=== PATIENT | female | born 1945 | race Caucasian/White ===

== ENCOUNTER 2019-08-22 10:26 | Outpatient (CLI) | payer MEDICARE, OTHER, SELFPAY ==
--- NOTE | ~2019-08-22 | MM_ITS ---
EXAMINATION: MM screening erasto BI w bob HISTORY: Screening mammogram TECHNIQUE: Craniocaudal and mediolateral oblique 3-D tomosynthesis images were obtained and synthetic 2-D images were generated. CAD analysis was submitted and interpreted. COMPARISON: 08/08/2017 bilateral digital screening mammogram 08/23/2015 bilateral digital screening mammogram BREAST PARENCHYMAL COMPOSITION: The breasts are heterogeneously dense, which may obscure small masses . FINDINGS: There is bilateral biopsy markers; history of prior bilateral benign breast biopsies. There is no evidence of suspicious mass, calcification, or architectural distortion to suggest malignancy in either breast. There has been no suspicious interval change. IMPRESSION: 1. No mammographic evidence of malignancy. 2. Recommend routine screening mammography in one year. BI-RADS Category 2: Benign finding(s). Reviewed, dictated and finalized at location A.
== END 2019-08-22 10:27 | disposition home or self-care (01) ==
PROVIDERS: PCP Family Medicine; Visit Provider Family Medicine
DX: Z12.31 Encounter for screening mammogram for malignant neoplasm of breast (principal)
CPT/HCPCS: 77063; 77067

== ENCOUNTER 2020-06-30 14:39 | Outpatient (CLI) | payer MEDICARE, OTHER, SELFPAY | END 2020-06-30 14:40 | disposition home or self-care (01) | LOC: ANHCOVIDVC 14:39 | PROVIDERS: PCP Family Medicine | DX: Z23 Encounter for immunization (principal) | CPT/HCPCS: 0001A; 91300 ==

== ENCOUNTER 2020-07-21 14:37 | Outpatient (CLI) | payer MEDICARE, OTHER, SELFPAY | END 2020-07-21 14:38 | disposition home or self-care (01) | LOC: ANHCOVIDVC 14:37 | PROVIDERS: PCP Family Medicine | DX: Z23 Encounter for immunization (principal) | CPT/HCPCS: 0002A; 91300 ==

== ENCOUNTER 2022-06-05 12:35 | Emergency (ER) | payer MEDICARE, SELFPAY ==
--- NOTE | 2022-06-05 12:40 | ED.URI ---
HPI - URI/Sore Throat General Chief Complaint: Upper Respiratory Infection Stated Complaint: Sore Throat,Fatigue Time Seen by Provider: 06/05/22 12:40 Source: patient Mode of arrival: ambulatory Limitations: no limitations History of Present Illness HPI Narrative: 76-year-old female presents with complaint of nasal congestion, mild sore throat, cough, fever, body aches chills and fatigue starting yesterday. Denies chest pain or shortness of breath. No nausea vomiting diarrhea. Patient states that last week her and had few 4 days ago. Reports that she was doing a lot of hiking and shaking of hands. Thinks that she pick something up at services. Is taking Tylenol to treat her fever. Last dose was at 3:00 a.m.. Is aware that she has a fever on arrival and will take medication when she gets home. All systems reviewed and negative except as noted above. Related Data Home Medications Medication Instructions Recorded Confirmed simvastatin 20 mg tablet 20 mg PO DAILY 06/05/22 06/05/22 Allergies Allergy/AdvReac Type Severity Reaction Status Date / Time hydrocodone AdvReac Intermediate NAUSEA Verified 06/05/22 12:46 Review of Systems Review of Systems: CONSTITUTIONAL: Reports fever, chills, or sweats. EYES: Denies visual changes, redness, or discharge. ENT: reports rhinorrhea, congestion, sore throat, or otalgia. CARDIOVASCULAR: Denies chest pain, palpitations, or edema. RESPIRATORY: reports cough or dyspnea. GASTROINTESTINAL: Denies abdominal pain, nausea, vomiting, or diarrhea. GENITOURINARY: Denies dysuria or hematuria. SKIN: Denies rash or itching. MUSCULOSKELETAL: Denies back pain, joint pain, or myalgia. NEUROLOGIC: reports headache. Denies numbness, or weakness. PSYCHIATRIC: Denies anxiety or depression. All other systems reviewed are negative, except as documented in HPI. PMFSH Comments At time of signature, agree with nursing past medical, surgical, social and family history. There is no relevant family history pertinent to the presenting complaint. Exam Narrative: GENERAL: This is a well-nourished, well-developed patient, in no apparent distress. HEAD: normocephalic, atraumatic. EYES: PERRL. Sclera clear/white. Vision is grossly intact. EARS: External ears normal, auditory canals clear and without drainage, TMs normal without perforation. Hearing grossly intact. NOSE: External nose normal with no obvious nasal discharge, nares without redness, no rhinorrhea. THROAT: Mucous membranes moist, mild erythema NECK: Neck supple, non-tender without lymphadenopathy, masses or thyromegaly. CARDIOVASCULAR: Regular rate and rhythm without murmurs, gallops, or rubs. RESPIRATORY: Clear to auscultation. Breath sounds equal bilaterally. No wheezes, rales, or rhonchi. SKIN: warm, Dry, intact with no suspicious lesions or rash, good texture and turgor. NEURO: awake, alert, and oriented to person, place and time. There were no obvious focal neurologic abnormalities. EXTREMITIES: No joint tenderness, effusion, or edema noted. Course Course Level of Care: Express Care Visit Vital Signs Vital signs: Vital Signs Temperature 38.8 C H 06/05/22 12:48 Pulse Rate 95 06/05/22 12:48 Respiratory Rate 20 06/05/22 12:48 Blood Pressure 143/63 H 06/05/22 12:48 Pulse Oximetry 99 06/05/22 12:48 Oxygen Delivery Room Air 06/05/22 12:48 Temperature 38.8 C H 06/05/22 12:48 Pulse Rate 95 06/05/22 12:48 Respiratory Rate 20 06/05/22 12:48 Blood Pressure 143/63 H 06/05/22 12:48 Pulse Oximetry 99 06/05/22 12:48 Oxygen Delivery Room Air 06/05/22 12:48 reviewed MDM - URI/Sore Throat MDM Narrative Medical decision making narrative: Patient is aware of diagnosis, understands and agrees to treatment plan. Anticipatory guidance given. Patient agrees to follow-up as directed and is aware of reasons to seek care at the emergency department. Portions of this recor
[2022-06-05 12:48] VITALS: BP 143/63; PULSE 95; RESP 20; TEMP 38.8; O2SAT 99
[2022-06-05 20:58] LABS: SARS-CoV-2 RNA PCR Positive
== END 2022-06-05 13:35 | disposition home or self-care (01) ==
PROVIDERS: Emergency Provider Nurse Practitioner Family; PCP Family Medicine
DX: U07.1 COVID-19 (principal); Z20.822 Contact with and (suspected) exposure to COVID-19; E78.00 Pure hypercholesterolemia, unspecified; M19.90 Unspecified osteoarthritis, unspecified site
CPT/HCPCS: 87426; 87804; 99213; C9803; G0463; U0003; U0005

== ENCOUNTER 2022-08-08 11:36 | Outpatient (CLI) | payer MEDICARE, SELFPAY ==
--- NOTE | 2022-08-08 10:31 | ECG_ITS ---
Measurements Intervals Padroni Rate: 63 P: 62 IN: 176 QRS: -48 QRSD: 127 T: 34 QT: 431 QTc: 443 Interpretive Statements SINUS RHYTHM RIGHT BUNDLE BRANCH BLOCK LEFT ANTERIOR FASCICULAR BLOCK ABNORMAL ECG NO PREVIOUS ECG AVAILABLE FOR COMPARISON Electronically Signed On 08-08-2022 16:23:47 CDT by Cam Acuña M.D.
[2022-08-08 11:01] LABS: Basophils Percent Auto 0.6 % (0.2-1.2); Eosinophils Absolute Auto 0.1 K/mm3 (0-0.3); Eosinophils Percent Auto 1.7 % (0-4.4); Hematocrit 38.8 % (37.0-47.0); Hemoglobin 12.4 g/dL (12.0-15.0); Immature Granulocyte Absolute 0.02 K/mm3 (0.00-0.031); Immature Granulocyte Percent A 0.3 % (0-0.5); Lymphocytes Absolute Auto 1.35 K/mm3 (0.9-3.2); Lymphocytes Percent Auto 20.4 % (18.3-44.2); Mean Corpuscular Hemoglobin 31.2 pg (26-34); Mean Corpuscular Volume 97.5 fl (80-100); Monocytes Absolute Auto 0.5 K/mm3 (0.1-0.6); Monocytes Percent Auto 7.3 % (2.6-8.5); Neutrophils Absolute Auto 4.6 K/mm3 (1.3-6.7); Neutrophils Percent Auto 69.7 % (45.5-73.1); Platelet Count Result 308 k/mm3 (150-375); Red Blood Count 3.98 M/mm3 (4.2-5.4); Red Cell Distribution Width 12.9 % (11.5-14.5); White Blood Count 6.6 K/mm3 (4.5-10.0)
[2022-08-08 11:05] LABS: Anion Gap 7 mmol/L (8-16); Blood Urea Nitrogen 15 mg/dL (7-17); Calcium 8.8 mg/dL (8.4-10.2); Carbon Dioxide 29 mmol/L (22-30); Chloride 104 mmol/L (98-107); Estimated Glomerular Filt Rate > 60; Glucose 88 mg/dL (65-110); Sodium 140 mmol/L (137-145)
[2022-08-08 11:34] LABS: Appearance Urine Cloudy (Clear); Bacteria Urine 4+ /hpf; Bilirubin Urine Negative (Negative); Blood Urine Trace (Negative); Color Urine Yellow (Yellow); Glucose Urine UA Negative (Negative); Ketones Urine Negative (Negative); Leukocyte Esterase Ur 3+ LEU/UL (Negative); Nitrate Urine Positive (Negative); Non Pathogenic Casts 0-2; Protein Urine Negative (Negative); RBC Urine 0-2 /hpf (0-2); Squamous Epithelial Cell Urine None seen /hpf (Few); Urobilinogen Urine 0.2 mg/dL (<2.0); WBC Urine >100 /hpf
[2022-08-08 11:36] LABS: Add Urine Microscopic? YES
== END 2022-08-08 11:37 | disposition home or self-care (01) ==
PROVIDERS: PCP Family Medicine; Visit Provider Nurse Practitioner Family
DX: Z01.818 Encounter for other preprocedural examination (principal); M17.12 Unilateral primary osteoarthritis, left knee; Z01.89 Encounter for other specified special examinations; R51.9 Headache, unspecified; R94.31 Abnormal electrocardiogram [ECG] [EKG]
CPT/HCPCS: 36415; 80048; 81001; 85025; 87077; 87086; 87186; 93005

== ENCOUNTER 2022-09-06 13:27 | Outpatient (CLI) | payer MEDICARE, SELFPAY ==
[2022-09-06 14:45] LABS: Prothrombin Time 13.3 Seconds (11.1-14.7)
[2022-09-06 14:46] LABS: Partial Thromboplastin Time 25.5 SECONDS (22.3-36.8)
[2022-09-06 15:33] LABS: Hemoglobin A1C 5.4 % (<5.7)
[2022-09-06 15:34] LABS: Appearance Urine Clear (Clear); Bacteria Urine None Seen /hpf; Bilirubin Urine Negative (Negative); Blood Urine Negative (Negative); Color Urine Yellow (Yellow); Glucose Urine UA Negative (Negative); Ketones Urine Negative (Negative); Leukocyte Esterase Ur Trace LEU/UL (Negative); Nitrate Urine Negative (Negative); Non Pathogenic Casts 0-2; Protein Urine Trace mg/dL (Negative); RBC Urine 0-2 /hpf (0-2); Specific Grav Ur 1.012 (1.001-1.035); Squamous Epithelial Cell Urine None seen /hpf (Few); Urobilinogen Urine 0.2 mg/dL (<2.0); WBC Urine 0-5 /hpf; pH Urine 6.5 (5.0-9.0)
[2022-09-06 15:43] LABS: Add Urine Microscopic? YES
[2022-09-06 16:14] LABS: Urine Cotinine NEGATIVE
== END 2022-09-06 13:28 | disposition home or self-care (01) ==
LOC: ANHSURGERY 13:33
PROVIDERS: PCP Family Medicine; Visit Provider Orthopaedic Surgery
DX: M17.12 Unilateral primary osteoarthritis, left knee (principal); Z01.818 Encounter for other preprocedural examination
CPT/HCPCS: 80307; 81001; 83036; 85610; 85730; 87081

== ENCOUNTER 2022-09-20 00:37 | Day surgery (SDC) | payer MEDICARE, SELFPAY ==
--- NOTE | 2022-09-06 13:30 | PC.NURSE ---
PRE-OP INSTRUCTIONS, PLEASE READ CAREFULLY Report to the Outpatient Waiting Room, entrance under the green pavilion located off [facility], at time _0900_ on date _09/20/22_. Planned Procedure Time: _1100_. PACK A SMALL OVERNIGHT BAG AND LEAVE IN THE CAR ALONG WITH YOUR WALKER Time changes happen often and if your time is changed the preop area will call you the afternoon before. - You and your visitor will be asked to self-screen and do not enter if you have any COVID symptoms. - A mask is optional within the hospital at this time. -VISITING HOURS 8AM-8PM Patients may have clear liquids (water, carbonated beverages, clear teas, apple juice) until 3 hours prior to surgery (0800 AM) with a maximum of 20 ounces. - No food from midnight until time of surgery Take the following medications with a SIP of water the morning of surgery: _NONE_ DO NOT STOP ANY OF YOUR OTHER PRESCRIPTION MEDICATIONS PRIOR TO SURGERY ?EXCEPT THE FOLLOWING Medications to discontinue per DR. YOUSIF (PER PT) - _ALL VITAMINS AND SUPPLEMENTS 7 DAYS PRIOR TO SURGERY, Date to take last dose 09/12/22_ Please no make-up, nail ghanaian, hairspray, perfume, deodorant, or body powder the day of surgery. No jewelry (including any body piercings) or valuables the day of surgery, leave them at home. Please take a shower or bath the night before, or the morning of, surgery with an antibacterial soap. Wear comfortable, loose fitting clothing. - Jewelry must be removed prior to entering the operating room. Rings and piercings that are not removed may be cut off. - The hospital will not accept responsibility for valuables. - Please leave all valuables, including medications, at home the day of surgery. If you are going home after surgery, a licensed transportation driver must drive you home. - NO public transportation without another adult if you receive anesthesia. - We recommend that an adult stay with you for 24 hours following discharge. - We also recommend that you do not drive, make important decision, drink alcoholic beverages, or take any drugs that were not prescribed by your health care provider for at least 24 hours after your discharge time. Follow any additional instructions given to you from your surgeon. If you or anyone in your household have experienced Covid symptoms in the past week, please notify your surgeon or the nurse liaison at the phone number below for possible testing. Instructions given to _PATIENT_and asked if any additional questions and then verbalized understanding. Patient advised to call surgeon office or pre surgery nurse liaison [phone] if any additional questions.
[2022-09-06 13:52] VITALS: BP 120/64; PULSE 72; RESP 20; TEMP 37.2; O2SAT 99; BMI 21.3
[2022-09-20] VITALS (14 sets, daily range): BP systolic 141–172; BP diastolic 64–90; PULSE 60–82; RESP 13–21; TEMP 36.2–36.9; O2SAT 98–100
--- NOTE | ~2022-09-20 | XR_ITS ---
EXAMINATION: [id number] DATE: 09/20/2022 14:00 CDT INDICATION: Left total knee arthroplasty TECHNIQUE: 2 views left knee FINDINGS: There is a left total knee arthroplasty in expected position. Subcutaneous gas with fluid and air in the joint and overlying skin charlotte are consistent with recent surgery. No evidence of pe riprosthetic fracture. IMPRESSION: 1. Recent left total knee arthroplasty. Reviewed, dictated and finalized at location B.
--- NOTE | 2022-09-20 07:11 | WPDHPUPDATE1 ---
History and Physical Update Update Date/Time: 09/20/22 07:11 History and Physical has been reviewed, including an updated exam of the patient. There are NO changes in the patient's condition. Risks, benefits, and alternatives have been discussed and questions answered. Patient agrees to proceed with procedure.
[2022-09-20] MEDS: ACETAMINOPHEN 500 MG TABLET 1000 MG PO (09:25)
--- NOTE | 2022-09-20 09:43 | WPDANESEPPF ---
Anes - Initial Pre Proc Eval Procedure: Operation Date: 09/20/22 11:00 Proposed Procedures p Left Total Knee Arthroplasty - Gerardo Fish MD Date/Time: 09/20/22 09:43 Surgeon: Gerardo Fish MD Pre Op Diagnosis: left knee severe DJD Patient Data Age: 76 Gender: F Height: 1.71 m Weight: 62.7 kg Last Vital Signs Temp 37.2 C 09/06/22 13:52 Pulse 72 09/06/22 13:52 Resp 20 09/06/22 13:52 BP 120/64 09/06/22 13:52 Pulse Ox 99 09/06/22 13:52 O2 Del Method Room Air 09/06/22 13:52 Allergies Allergy/AdvReac Type Severity Reaction Status Date / Time hydrocodone AdvReac Intermediate NAUSEA Verified 09/20/22 09:13 Home Medications Medication Instructions Recorded Confirmed Type Lactobacillus rhamnosus-Bifidobac. 1 cap PO DAILY 08/31/22 09/06/22 History animalis 3 billion cell capsule ([employer]) biotin 1,250 mcg-collagen 50 1 tablet PO DAILY 08/31/22 09/06/22 History mg-vit C 67.5 mg-vit E-herbal chew tablet ([employer]) calcium carbonate 80 mg-magnesium 1 tablet PO DAILY 08/31/22 09/06/22 History carbonate 115 mg tablet coffee extract 50 mg-phosphatidyl 1 tablet PO DAILY 08/31/22 09/06/22 History serine 50 mg chewable tablet (Neuriva Original) cranberry 500 mg capsule 500 mg PO BID 08/31/22 09/06/22 History glucosamine-chondroitin 750 mg-600 1 tablet PO BID 08/31/22 09/06/22 History mg tablet omega-3 fatty acids 500 mg capsule 500 mg PO DAILY 08/31/22 09/06/22 History potassium gluconate 595 mg (99 mg) 595 mg PO DAILY 08/31/22 09/06/22 History tablet simvastatin 20 mg tablet 20 mg PO DAILY #90 tabs 08/31/22 09/06/22 Rx turmeric root extract 500 mg 500 mg PO BID 08/31/22 09/06/22 History capsule vitamins A,C,X-qqkg-exbpzb 2,148 1 tablet PO BID 08/31/22 09/06/22 History mcg-113 mg-45 mg-17.4 mg tablet (PreserVision AREDS) Patient hx anesthesia problems: none Family hx anesthesia problems: none Results Review: All pre-operative results and documents have been reviewed as part of the pre-operative evaluation. [facility]LY [facility] Past Medical History Medical History Degenerative joint disease of knee Headache, unspecified Hearing loss Hyperlipidemia, unspecified Left otitis externa terminal carman (current) use of non-steroidal anti-inflammatories (nsaid) Personal history of colonic polyps Personal history of COVID-19 Primary generalized (osteo)arthritis Vision abnormalities Social History Social History Smoking status: Never smoker Second hand tobacco smoke exposure: No Additional smoking assessment comments: PT DENIES ALL FORMS OF TOBACCO USE Alcohol intake: never Substance use: never Substance use type: does not use Lack of Transportation: No Lack of Food: Never True Current Housing: I Have Housing Concerned About Future Housing: No Difficulty Paying Gas/Electric Bills: No Difficulty Paying for Meds: No Currently Unemployed: YES Education: Bachelor's Degree Difficulty w/ Childcare or Family Care: No Living arrangements: alone Occupation/Education: retired Gender identity (if verbalized by the patient): Female Sexual Orientation (if Verbalized by the Patient): Straight or Heterosexual Spiritual care concerns: No Anes - Eval Final PreProcedure Day of Procedure 09/20/22 09:43 Patient weight: normal Heart: regular rate and rhythm Lungs: clear to auscultation Airway: Mallampati scale class II Neurological: alert and oriented Last oral intake: >/= 8 hours ASA classification: II Emergent: no Anesthetic plan: proceed Anesthesia type and monitoring: general LMA and standard monitoring Results Review: All pre-operative results and documents have been reviewed as part of the pre-operative evaluation. Informed Consent: The patient's anesthetic plan and its att
[2022-09-20] MEDS: LACTATED RINGERS 1,000 ML 30 ML IV CONT ×2 (10:00→13:41)
[2022-09-20] MEDS: TRANEXAMIC ACID 1,000MG/ISO100 1,000 MG/100 ML BAG 200 MG IVPB (10:29)
--- NOTE | 2022-09-20 10:41 | WPDANESPNB ---
Anes - Peripheral Nerve Block Date/Time: 09/20/22 10:41 I have discussed with the patient/family/POA the placement of a peripheral nerve block for post-operative pain management, including associated risks, benefits, complications, and side effects. Alternative methods of post-operative analgesia were detailed. Questions were solicited and answers provided to the satisfaction of the patient/family/POA. Time-Out: A pre-procedural Time-Out was completed immediately before starting the procedure and confirmed: Patient Identification, Site, Procedure, Patient Position and the Availability of Requisite Equipment. Clinical Indications: Acute post-operative pain management requested by the operative surgeon. Nerve Block Insertion Note Anes-nerve block: adductor canal left Patient position: supine Skin prep: chlorhexidine Needle: 22 gauge, stimulating, insulated echogenic needle. Needle length: 80 mm Technique: ultrasound Injectate: bupivacaine 0.5% with epi 5 mcg/ml (30cc - no epi) Observations: tolerated well Complications: none Procedure start time:: 1034 Procedure end time:: 1038
[2022-09-20] MEDS: ceFAZolin 2 GM/D5W 50 ML 2 GM/50 ML BAG IVPB ×2 (10:58→18:00)
--- NOTE | 2022-09-20 13:18 | W.PM.PROC2 ---
Procedure Note - Detailed Date of Procedure 09/20/22 Pre-op Diagnosis left knee severe DJD Post-op Diagnosis Same Procedure Performed L TKA Surgeon Gerardo Fish MD Anesthesia General Description of Procedure THE LEFT KNEE WAS PREPPED AND DRAPED IN THE STERILE FASHION. THERE WAS A 20 DEGREE FLEXION CONTRACTURE. A MIDLINE SKIN INCISION WAS MADE. A MEDIAL PARAPATELLAR ARTHROTOMY WAS MADE. THE PATELLA WAS EVERTED. THERE WAS TRICOMPARTMENT DJD. AN INTRAMEDULLARY KIRIT WAS PLACED IN THE FEMUR. A DISTAL FEMORAL CUT WAS MADE IN 5 DEGREES OF VALGUS REMOVING APPROXIMATELY 11 MM OF BONE FROM THE DISTAL FEMUR. THE FEMUR WAS SIZED TO 65. A 65 FEMORAL CUTTING BLOCK WAS PLACED IN 3 DEGREES OF EXTERNAL ROTATION AND IN ALIGNMENT WITH CASS'S LINE AND THE TRANSEPICONDYLAR AXIS. ANTERIOR POSTERIOR AND CHAMFER CUTS WERE MADE. THE CUTS WERE EXCELLENT. NEXT AN INTRAMEDULLARY CUTTING GUIDE WAS PLACED IN THE TIBIA. A TRANS TIBIAL CUT WAS MADE ALONG THE LONG AXIS OF THE TIBIA. APPROXIMATELY 10 MM OF BONE WAS REMOVED FROM THE HIGH SIDE OF THE TIBIA. THE TIBIA WAS THEN PLANED TO A SMOOTH SURFACE. POSTERIOR FEMORAL OSTEOPHYTES WERE REMOVED FROM THE FEMORAL CONDYLES. A 75 TIBIAL TRIAL WAS PLACED IN ALIGNMENT WITH THE 1/3 MEDIAL ASPECT OF THE TIBIAL TUBERCLE. THEN A 65 FEMORAL TRIAL COMPONENT WAS PLACED. BOTH HAD EXCELLENT FITS. EVENTUALLY A 12 MM CR POLYETHYLENE TRIAL COMPONENT WAS PLACED. THE KNEE WAS TAKEN THROUGH A RANGE OF MOTION. THE KNEE CAME OUT TO FULL EXTENSION. THERE WAS NO ABNORMAL TILT TO THE PATELLA. THERE WAS GOOD A/P AND VARUS/VALGUS STABILITY. THERE WAS NO EXCESSIVE ROLL BACK WITH FLEXION. THE TRIAL COMPONENTS WERE REMOVED. THEN A 65 FEMORAL COMPONENT AND 75 TIBIAL COMPONENT WITH A 12 CR POLYETHYLENE COMPONENT WERE CEMENTED INTO PLACE. ONCE THE CEMENT WAS HARD THE KNEE WAS TAKEN THROUGH A ROM AGAIN AND FOUND TO BE STABLE WITH NO PATELLA TILT NO EXCESSIVE ROLL BACK WITH FLEXION AND GOOD STABILITY WITH COMPLETE AND FULL EXTENSION. THE KNEE WAS IRRIGATED WITH STERILE BETADINE AND WATER FOR ABOUT 3 MINUTES. THE BLEEDERS WERE CAUTERIZED. THE ARTHROTOMY WAS REPAIRED WITH NUMBER 1 VICRYL. THE SUB CUTANEOUS LAYER WITH 2-0 VICRYL AND THE SKIN WITH AMAN. THE WOUND WAS WASHED AND A STERILE DRESSING WAS APPLIED. PATIENT WAS EXTUBATED. Estimated Blood Loss 50 Pathology None sent Complications No immediate complications Condition Stable Disposition PACU
--- NOTE | 2022-09-20 14:36 | SUR.PHASEI ---
1436 - MD Gore notified of pt. BP 172/90. No new orders at this time.
--- NOTE | 2022-09-20 15:06 | ADMGEN ---
This patient, Karli Cabello, was admitted to 2 Medical Room 241-01. Patient/family oriented to hospital policies and general routines including ID bracelet, bed and alarms, visiting hours, pain management, procedures, bathroom and other care routines, personal items, smoking policy, room service/diet, and visiting hours. Information on how to activate the Rapid Response Team has been discussed. Patient/Family are encouraged to report perceived risks to care and to ask questions if they do not understand what they are told or what they should do.
[2022-09-20] MEDS: SENNA/DOCUSATE SODIUM TABLET 2 TAB PO (16:13)
[2022-09-20] MEDS: CELECOXIB 200 MG CAPSULE PO (16:13)
[2022-09-20] MEDS: oxyCODONE/ACETAMINOPHEN (*CRX) 5-325 MG TABLET 1 TABLET PO (16:59)
[2022-09-20] MEDS: ONDANSETRON INJ 4 MG/2 ML VIAL IV PUSH (18:50)
[2022-09-20] MEDS: FAMOTIDINE 20 MG TABLET PO (20:31)
[2022-09-20] MEDS: ASPIRIN 325 MG ENTERIC TABLET PO (20:31)
[2022-09-21] MEDS: ONDANSETRON INJ 4 MG/2 ML VIAL IV PUSH ×2 (00:51→08:07)
[2022-09-21 01:55] VITALS: BP 121/65; PULSE 62; RESP 20; TEMP 36.9; O2SAT 98
[2022-09-21] MEDS: ceFAZolin 2 GM/D5W 50 ML 2 GM/50 ML BAG IVPB ×2 (02:08→12:24)
[2022-09-21 04:31] VITALS: BP 128/68; PULSE 68; RESP 20; TEMP 36.3; O2SAT 99
[2022-09-21 05:23] LABS: Basophils Percent Auto 0.2 % (0.2-1.2); Eosinophils Percent Auto 0.1 % (0-4.4); Hematocrit 33.6 % (37.0-47.0); Hemoglobin 11.3 g/dL (12.0-15.0); Immature Granulocyte Absolute 0.12 K/mm3 (0.00-0.031); Immature Granulocyte Percent A 0.7 % (0-0.5); Lymphocytes Absolute Auto 1.43 K/mm3 (0.9-3.2); Lymphocytes Percent Auto 8.1 % (18.3-44.2); Mean Corpuscular HGB Conc 33.6 g/dl (32-36); Mean Corpuscular Hemoglobin 31.7 pg (26-34); Mean Corpuscular Volume 94.4 fl (80-100); Monocytes Absolute Auto 1.1 K/mm3 (0.1-0.6); Monocytes Percent Auto 6.1 % (2.6-8.5); Neutrophils Percent Auto 84.8 % (45.5-73.1); Platelet Count Result 308 k/mm3 (150-375); Red Blood Count 3.56 M/mm3 (4.2-5.4); Red Cell Distribution Width 12.6 % (11.5-14.5); White Blood Count 17.6 K/mm3 (4.5-10.0)
[2022-09-21 05:34] LABS: Anion Gap 7 mmol/L (8-16); Blood Urea Nitrogen 15 mg/dL (7-17); Calcium 8.4 mg/dL (8.4-10.2); Carbon Dioxide 28 mmol/L (22-30); Chloride 96 mmol/L (98-107); Estimated CRCL calculation 57 ml/min; Estimated Glomerular Filt Rate > 60; Glucose 121 mg/dL (65-110); Sodium 131 mmol/L (137-145)
[2022-09-21] MEDS: CELECOXIB 200 MG CAPSULE PO ×2 (08:08→16:43)
[2022-09-21] MEDS: SENNA/DOCUSATE SODIUM TABLET 2 TAB PO ×2 (08:08→16:43)
[2022-09-21] MEDS: ASPIRIN 325 MG ENTERIC TABLET PO (08:08)
[2022-09-21] MEDS: polyethylene glycoL 3350 17 GM POWD.PACK PO (08:08)
[2022-09-21] MEDS: FAMOTIDINE 20 MG TABLET PO (08:08)
[2022-09-21] MEDS: SIMVASTATIN 20 MG TABLET PO (08:08)
[2022-09-21 09:09] VITALS: BP 102/58; PULSE 69; RESP 18; TEMP 37.2; O2SAT 99
[2022-09-21 09:32] VITALS: O2SAT 98
[2022-09-21] MEDS: PROCHLORPERAZINE EDISYLATE 10 MG/2 ML VIAL IV PUSH (09:50)
[2022-09-21] MEDS: ACETAMINOPHEN 500 MG TABLET 1000 MG PO ×2 (09:55→16:42)
--- NOTE | 2022-09-21 11:44 | P.PNAN_ITS ---
Anes - Prog Note Post-Op Date/Time: 09/21/22 11:44 Cardiovascular status: normal Respiratory status: normal Airway patency: baseline Mental status: baseline Post-Op hydration status: normal (nausea and headache) Vital Signs: Last Vital Signs Temp 37.2 C 09/21/22 09:09 Pulse 69 09/21/22 09:09 Resp 18 09/21/22 09:09 BP 102/58 L 09/21/22 09:09 Pulse Ox 99 09/21/22 09:09 O2 Del Method Room Air 09/21/22 08:05 O2 Flow Rate 8 09/20/22 13:45 Pain Score (VAS): 0 I/O: Intake & Output 09/20/22 09/21/22 09/21/22 23:59 07:59 15:59 Intake Total 740 550 0 Balance 740 550 0 Laboratory Tests 09/21/22 04:23 09/21/22 04:23 09/21/22 04:23 WBC 17.6 H RBC 3.56 L Hgb 11.3 L Hct 33.6 L MCV 94.4 MCH 31.7 MCHC 33.6 RDW 12.6 Plt Count 308 MPV 10.0 Immature Gran % (Auto) 0.7 H Neut % (Auto) 84.8 H Lymph % (Auto) 8.1 L [place] % (Auto) 6.1 Eos % (Auto) 0.1 Baso % (Auto) 0.2 Lymph # (Auto) 1.43 [place] # (Auto) 1.1 H Eos # (Auto) 0.0 Baso # (Auto) 0.0 Abs Immat Gran (auto) 0.12 H Absolute Neuts (auto) 15.0 H Absolute Nucleated RBC 0.0 Nucleated RBC % 0.0 Sodium 131 L Potassium 4.0 Chloride 96 L Carbon Dioxide 28 Anion Gap 7 L BUN 15 Creatinine 0.70 Estim Creat Clear Calc 57 Estimated GFR > 60 Glucose 121 H Calcium 8.4 Post-procedural complaints: none Patient Feedback: Patient satisfied with anesthetic care.
--- NOTE | 2022-09-21 13:28 | PCPTNOTE ---
On 09/21/22, the student, [Idalia May], provided care and completed [facility] documentation on this patient. I have reviewed the student's documentation and agree with the findings.
[2022-09-21 15:24] VITALS: BP 132/66; PULSE 64; RESP 18; TEMP 37.2; O2SAT 100
--- NOTE | 2022-09-21 18:10 | PM.DS ---
DS: Admitting Diagnosis Discharge Date 09/21/22 Admitting Diagnosis LEFT KNEE DJD DS: Discharge Diagnosis Discharge Diagnosis (1) Degenerative joint disease of knee: Qualifiers: Osteoarthritis type: primary Laterality: left Qualified Code(s): M17.12 - Unilateral primary osteoarthritis, left knee Code(s): M17.9 - Osteoarthritis of knee, unspecified Status: Acute Assessment and Plan: POD 1 DOING WELL. OK TO DC HOME F/U IN 3 WEEKS DS: Summary Hospital Course Reason for hospitalization: PATIENT WAS ADMITTED S/P TOTAL KNEE ARTHROPLASTY FOR POSTOPERATIVE MEDICAL MANAGEMENT, PAIN CONTROL AND MOBILIZATION WITH PHYSICAL AND OCCUPATIONAL THERAPY. THE PATIENT PROGRESSED WELL WITH PT/OT. LABS AND VITALS REMAINED STABLE AND PAIN WELL CONTROLLED. THE PATIENT HAS BEEN CLEARED TO BE DISCHARGED HOME. FOLLOW UP APPOINTMENT SCHEDULED. DISCHARGE INSTRUCTIONS DISCUSSED AT LENGTH WITH THE PATIENT. MEDICATIONS REVIEWED. Hospital Course: PATIENT WAS ADMITTED S/P TOTAL KNEE ARTHROPLASTY FOR POSTOPERATIVE MEDICAL MANAGEMENT, PAIN CONTROL AND MOBILIZATION WITH PHYSICAL AND OCCUPATIONAL THERAPY. THE PATIENT PROGRESSED WELL WITH PT/OT. LABS AND VITALS REMAINED STABLE AND PAIN WELL CONTROLLED. THE PATIENT HAS BEEN CLEARED TO BE DISCHARGED HOME. FOLLOW UP APPOINTMENT SCHEDULED. DISCHARGE INSTRUCTIONS DISCUSSED AT LENGTH WITH THE PATIENT. MEDICATIONS REVIEWED. Status at Discharge Cognitive/behavioral status at discharge: STABLE Functional status at discharge: uses cane/walker Time Spent with Patient Time attestation: Total time spent providing and/or coordinating discharge services: Exam Extrem: Other: VSS AFEBRILE DRESSING DRY NV INTACT NEG HOMANS SIGN CALF SOFT NON TENDER DS: Data Data Completed and Pending Labs on day of discharge: Labs from last 24 hours 09/21/22 04:23 WBC 17.6 H RBC 3.56 L Hgb 11.3 L Hct 33.6 L MCV 94.4 MCH 31.7 MCHC 33.6 RDW 12.6 Plt Count 308 MPV 10.0 Immature Gran % (Auto) 0.7 H Neut % (Auto) 84.8 H Lymph % (Auto) 8.1 L [place] % (Auto) 6.1 Eos % (Auto) 0.1 Baso % (Auto) 0.2 Lymph # (Auto) 1.43 [place] # (Auto) 1.1 H Eos # (Auto) 0.0 Baso # (Auto) 0.0 Abs Immat Gran (auto) 0.12 H Absolute Neuts (auto) 15.0 H Absolute Nucleated RBC 0.0 Nucleated RBC % 0.0 Sodium 131 L Potassium 4.0 Chloride 96 L Carbon Dioxide 28 Anion Gap 7 L BUN 15 Creatinine 0.70 Estim Creat Clear Calc 57 Estimated GFR > 60 Glucose 121 H Calcium 8.4 Procedures/Treatments: LEFT TKA Discharge Plan Discharge Patient Disposition: Home Health Service Discharge Instructions: Per Care Coordination, patient to discharge with [facility] ([phone]) for PT/OT and longterm services. Agency will call to arrange the initial visit. TOBY FISH M.D. [facility] [address] [place] [address] POST OPERATIVE DISCHARGE INSTRUCTIONS FOLLOWING TOTAL KNEE REPLACEMENT SURGERY ? Your dressing will be changed prior to your discharge. You will be sent home with one additional dressing to be changed on post op day 7 by the home health RN. Your charlotte will be removed on the 14th day after surgery and steri-strips will be placed. Please practice good hand hygiene and do not touch your incision in order to prevent infection. ? You may shower with your dressing but do not submerge in a bath tub. ? Do not drive or operate machinery until you are released by Dr. Fish. ? Do not walk without a walker for any reason until you are released by Dr. Fish. ? Continue to use your ice machine. Please use a towel or pillow case to protect your skin before applying your ice machine. ? Do NOT place a pillow under your knee. You may use a pillow from the calf down if needed. This will prevent a flexion contracture postoperatively. ? You may begin use of your CPM machine at home if you h
== END 2022-09-21 18:45 | disposition home health service (06) ==
LOC: ANHSURGERY 08:51 → ANH2MED 14:48
PROVIDERS: PCP Family Medicine; Visit Provider Orthopaedic Surgery
PROC: (CPT 27447; principal; 2022-09-20 11:00)
DX: M17.12 Unilateral primary osteoarthritis, left knee (principal); G89.18 Other acute postprocedural pain; E78.5 Hyperlipidemia, unspecified
CPT/HCPCS: 27447; 64447; 36415; 73560; 80048; 80307; 81001; 83036; 85025; 85610; 85730; 86850; 86900; 86901; 87081; 97110; 97116; 97161; 97165; 97535; A9270; C1713; C1776; J0171; J0690; J0780; J1885; J2250; J2270; J2405; J2704; J2795; J3010; J7120

== ENCOUNTER 2022-11-16 06:27 | Day surgery (SDC) | payer MEDICARE, SELFPAY ==
[2022-11-03 09:26] VITALS: BMI 20.2
--- NOTE | 2022-11-15 12:43 | WPDANESEPPF ---
Anes - Initial Pre Proc Eval Procedure: Operation Date: 11/16/22 08:30 Proposed Procedures p Screening Colonoscopy - Harpreet Guerra MD Date/Time: 11/15/22 12:43 Surgeon: Harpreet Guerra MD Pre Op Diagnosis: History of Colon Polyps Patient Data Age: 77 Gender: F Height: 1.7 m Weight: 58.5 kg Allergies Allergy/AdvReac Type Severity Reaction Status Date / Time hydrocodone AdvReac Intermediate NAUSEA Verified 11/16/22 07:07 Home Medications Medication Instructions Recorded Confirmed Type Lactobacillus rhamnosus-Bifidobac. 1 cap PO DAILY 08/31/22 11/16/22 History animalis 3 billion cell capsule ([employer]) biotin 1,250 mcg-collagen 50 1 tablet PO DAILY 08/31/22 11/16/22 History mg-vit C 67.5 mg-vit E-herbal chew tablet ([facility] [employer] [employer] [facility]) calcium carbonate 80 mg-magnesium 1 tablet PO DAILY 08/31/22 11/16/22 History carbonate 115 mg tablet coffee extract 50 mg-phosphatidyl 1 tablet PO DAILY 08/31/22 11/16/22 History serine 50 mg chewable tablet (Neuriva Original) cranberry 500 mg capsule 500 mg PO BID 08/31/22 11/16/22 History glucosamine-chondroitin 750 mg-600 1 tablet PO BID 08/31/22 11/16/22 History mg tablet omega-3 fatty acids 500 mg capsule 500 mg PO DAILY 08/31/22 11/16/22 History potassium gluconate 595 mg (99 mg) 595 mg PO DAILY 08/31/22 11/16/22 History tablet simvastatin 20 mg tablet 20 mg PO DAILY #90 tabs 08/31/22 11/16/22 Rx turmeric root extract 500 mg 500 mg PO BID 08/31/22 11/16/22 History capsule vitamins A,C,U-ommj-vsyavc 2,148 1 tablet PO BID 08/31/22 11/16/22 History mcg-113 mg-45 mg-17.4 mg tablet (PreserVision AREDS) sodium,potassium,mag sulfates 17.5 See Rx Instructions PO .COMPLEX 09/26/22 11/16/22 Rx gram-3.13 gram-1.6 gram oral soln #354 mL (Suprep Bowel Prep Kit) Patient hx anesthesia problems: none Family hx anesthesia problems: none Results Review: All pre-operative results and documents have been reviewed as part of the pre-operative evaluation. [facility] Past Medical History Medical History Degenerative joint disease of knee Headache, unspecified Hearing loss Hyperlipidemia, unspecified Left otitis externa group home (current) use of non-steroidal anti-inflammatories (nsaid) Personal history of colonic polyps Personal history of COVID-19 Primary generalized (osteo)arthritis Vision abnormalities Social History Social History Smoking status: Never smoker Second hand tobacco smoke exposure: No Additional smoking assessment comments: PT DENIES ALL FORMS OF TOBACCO USE Alcohol intake: former Substance use: never Substance use type: does not use Lack of Transportation: No Lack of Food: Never True Current Housing: I Have Housing Concerned About Future Housing: No Difficulty Paying Gas/Electric Bills: No Difficulty Paying for Meds: No Currently Unemployed: YES Education: Bachelor's Degree Difficulty w/ Childcare or Family Care: No Living arrangements: alone Occupation/Education: retired Gender identity (if verbalized by the patient): Female Sexual Orientation (if Verbalized by the Patient): Straight or Heterosexual Spiritual care concerns: No Anes - Eval Final PreProcedure Day of Procedure 11/15/22 12:43 Patient weight: normal Heart: regular rate and rhythm Lungs: clear to auscultation Airway: Mallampati scale class II Neurological: alert and oriented Last oral intake: >/= 8 hours ASA classification: II Emergent: no Anesthetic plan: proceed Anesthesia type and monitoring: general GIVS and standard monitoring Results Review: All pre-operative results and documents have been reviewed as part of the pre-operative evaluation. Informed Consent: The patient's anesthetic plan and its attendant risks and benefits were discussed with the patie
[2022-11-16 07:05] VITALS: BP 118/79; PULSE 80; RESP 20; TEMP 36.7; O2SAT 100
[2022-11-16] MEDS: LACTATED RINGERS 1,000 ML 150 ML IV CONT (07:21)
--- NOTE | 2022-11-16 07:28 | PM.HPGS ---
History of Present Illness History of Present Illness Consent: Risks, benefits, and alternatives have been discussed and questions answered. Patient agrees to proceed with procedure. Chief complaint: History of Colon Polyps Narrative: Karli Cabello is a 77 year old female Presents for screening colonoscopy. Patient has a history of adenomatous colon polyps most recently [address] Issa. Patient reports that her bowel habits are normal. She had a knee replacement in August of 2022. Patient reports her current weight appetite and bowel movements are normal. Review of Systems Review of Systems: Review of systems noncontributory. [facility] Past Medical History Medical History Degenerative joint disease of knee Headache, unspecified Hearing loss Hyperlipidemia, unspecified Left otitis externa chocolate dipper (current) use of non-steroidal anti-inflammatories (nsaid) Personal history of colonic polyps Personal history of COVID-19 Primary generalized (osteo)arthritis Vision abnormalities Social History Social History Smoking status: Never smoker Second hand tobacco smoke exposure: No Additional smoking assessment comments: PT DENIES ALL FORMS OF TOBACCO USE Alcohol intake: former Substance use: never Substance use type: does not use Lack of Transportation: No Lack of Food: Never True Current Housing: I Have Housing Concerned About Future Housing: No Difficulty Paying Gas/Electric Bills: No Difficulty Paying for Meds: No Currently Unemployed: YES Education: Bachelor's Degree Difficulty w/ Childcare or Family Care: No Living arrangements: alone Occupation/Education: retired Gender identity (if verbalized by the patient): Female Sexual Orientation (if Verbalized by the Patient): Straight or Heterosexual Spiritual care concerns: No Meds Home Medications and Allergies Home Medications Medication Instructions Recorded Confirmed Type Lactobacillus rhamnosus-Bifidobac. 1 cap PO DAILY 08/31/22 11/16/22 History animalis 3 billion cell capsule ([facility]) biotin 1,250 mcg-collagen 50 1 tablet PO DAILY 08/31/22 11/16/22 History mg-vit C 67.5 mg-vit E-herbal chew tablet ([facility] [employer] [employer] [facility]) calcium carbonate 80 mg-magnesium 1 tablet PO DAILY 08/31/22 11/16/22 History carbonate 115 mg tablet coffee extract 50 mg-phosphatidyl 1 tablet PO DAILY 08/31/22 11/16/22 History serine 50 mg chewable tablet (Neuriva Original) cranberry 500 mg capsule 500 mg PO BID 08/31/22 11/16/22 History glucosamine-chondroitin 750 mg-600 1 tablet PO BID 08/31/22 11/16/22 History mg tablet omega-3 fatty acids 500 mg capsule 500 mg PO DAILY 08/31/22 11/16/22 History potassium gluconate 595 mg (99 mg) 595 mg PO DAILY 08/31/22 11/16/22 History tablet simvastatin 20 mg tablet 20 mg PO DAILY #90 tabs 08/31/22 11/16/22 Rx turmeric root extract 500 mg 500 mg PO BID 08/31/22 11/16/22 History capsule vitamins A,C,R-ufvp-nxgtgj 2,148 1 tablet PO BID 08/31/22 11/16/22 History mcg-113 mg-45 mg-17.4 mg tablet (PreserVision AREDS) sodium,potassium,mag sulfates 17.5 See Rx Instructions PO .COMPLEX 09/26/22 11/16/22 Rx gram-3.13 gram-1.6 gram oral soln #354 mL (Suprep Bowel Prep Kit) Allergies Allergy/AdvReac Type Severity Reaction Status Date / Time hydrocodone AdvReac Intermediate NAUSEA Verified 11/16/22 07:07 Vital Signs Vital Signs - 24 hr 11/16/22 07:05 Temperature 98.0 F Pulse Rate 80 Respiratory Rate 20 Blood Pressure 118/79 Pulse Oximetry 100 Oxygen Delivery Room Air Exam Narrative: Physical exam reveals patient to be alert. Vital signs stable. HEENT exam is unremarkable. Patient is anicteric. Lungs are clear to auscultation and percussion. Heart is without murmur or extra sounds. Abdomen bow
[2022-11-16] MEDS: AMPICILLIN 2 GM/NS 100 ML 2 GM/100 ML BAG IVPB (08:43)
[2022-11-16 09:08] VITALS: BP 119/68; PULSE 85; RESP 16; O2SAT 99
[2022-11-16 09:18] VITALS: BP 129/78; PULSE 71; RESP 16; O2SAT 100
[2022-11-16 09:28] VITALS: BP 148/56; PULSE 63; RESP 16; O2SAT 97
--- NOTE | 2022-11-16 12:21 | WPDANESPN ---
Anes - Prog Note Post-Op Date/Time: 11/16/22 12:21 Cardiovascular status: normal Respiratory status: normal Airway patency: baseline Mental status: baseline Post-Op hydration status: normal Vital Signs: Last Vital Signs Temp 36.7 C 11/16/22 07:05 Pulse 63 11/16/22 09:28 Resp 16 11/16/22 09:28 BP 148/56 H 11/16/22 09:28 Pulse Ox 97 11/16/22 09:28 O2 Del Method Room Air 11/16/22 09:28 Pain Score (VAS): 0 I/O: Intake & Output 11/15/22 11/16/22 11/16/22 23:59 07:59 15:59 Intake Total 800 Balance 800 Post-procedural complaints: none Patient Feedback: Patient satisfied with anesthetic care.
== END 2022-11-16 09:42 | disposition home or self-care (01) ==
PROVIDERS: PCP Family Medicine; Visit Provider Internal Medicine Gastroenterology
PROC: 0DJD8ZZ Inspection of Lower Intestinal Tract, Via Natural or Artificial Opening Endoscopic (ICD-10-PCS; CPT 45378; principal; 2022-11-16 08:30)
DX: Z86.010 Personal history of colon polyps (principal)
CPT/HCPCS: 45378